=== PATIENT | male | born 1980 | race Hispanic/Latino ===

== ENCOUNTER 2017-10-25 06:30 | Emergency (ER) | payer OTHER ==
[2017-10-25 06:58] VITALS: BP 136/90; PULSE 71; RESP 16; TEMP 98; O2SAT 98
[2017-10-25] MEDS ORDERED: Albuterol-Ipratrop 3 mg / 0.5 (3 ml) UD IH STA (07:05)
--- NOTE | 2017-10-25 07:08 | ED PDOC ---
HPI: CCC, URI, Sore Throat Time Seen by Provider: 10/25/17 06:56 Chief Complaint (Nursing): Cough, Cold, Congestion History Per: Patient Onset/Duration Of Symptoms: Days (3) Current Symptoms Are (Timing): Still Present Associated Symptoms: Cough. denies: Fever Severity: Moderate Additional Complaint(s): Productive cough assoc with chest tightness x 3 days. Started on antibiotics 2 days ago after CXR showing bronchitis. No fever. Past Medical History Reviewed: Historical Data, Nursing Documentation, Vital Signs Vital Signs: Last Vital Signs Temp 98.0 F 10/25/17 06:54 Pulse 71 10/25/17 06:54 Resp 16 10/25/17 06:54 BP 136/90 10/25/17 06:54 Pulse Ox 98 10/25/17 07:40 - Medical History PMH: No Chronic Diseases - Family History Family History: States: Unknown Family Hx - Immunization History Hx Tetanus Toxoid Vaccination: No Hx Influenza Vaccination: No Hx Pneumococcal Vaccination: No - Home Medications Home Medications: Ambulatory Orders Medication Instructions Recorded Azithromycin 250 mg PO DAILY #6 tab 10/23/17 Benzonatate [Tessalon Perles] 200 mg PO TID PRN #15 sgl 10/23/17 Albuterol HFA [Ventolin HFA 90 2 puff IH Q4H #1 puff 10/25/17 mcg/actuation (8 g)] Prednisone 50 mg PO DAILY #5 tab 10/25/17 - Allergies Allergies/Adverse Reactions: Allergies Allergy/AdvReac Type Severity Reaction Status Date / Time Penicillins Allergy RASH Verified 05/24/17 08:07 Review of Systems Constitutional: Negative for: Fever ENT: Negative for: Throat Pain Respiratory: Positive for: Cough Gastrointestinal: Negative for: Nausea, Vomiting Physical Exam - Reviewed Nursing Documentation Reviewed: Yes Vital Signs Reviewed: Yes - Physical Exam Appears: Positive for: Non-toxic, No Acute Distress Skin: Positive for: Normal Color, Warm, DRY Cardiovascular/Chest: Positive for: Regular Rate, Rhythm Respiratory: Positive for: Rhonchi. Negative for: Wheezing, Respiratory Distress Extremity: Positive for: Normal ROM Neurologic/Psych: Positive for: Alert, Oriented - ECG O2 Sat by Pulse Oximetry: 98 Medical Decision Making Medical Decision Making: Time 07:05 Plan: - Duoneb 3 mg/0.5 mg 93 ml) UD - Tylenol 325mg tab - Peak flow/Pre/Post treatment - Influenza A B Stat Disposition - Clinical Impression Clinical Impression: Bronchitis - Patient ED Disposition Is Patient to be Admitted: No Counseled Patient/Family Regarding: Studies Performed, Diagnosis, Need For Followup, Rx Given - Disposition Referrals: [facility] [Outside] Disposition: Routine/Home Disposition Time: 09:05 Condition: FAIR Prescriptions: Albuterol HFA [Ventolin HFA 90 mcg/actuation (8 g)] 2 puff IH Q4H #1 puff Prednisone 50 mg PO DAILY #5 tab Instructions: Acute Bronchitis (ED) Forms: [employer] ([place]ovenian)
== END 2017-10-25 09:19 | disposition home or self-care (01) ==
LOC: H.ER 06:30
DX: J40 Bronchitis, not specified as acute or chronic (principal); Z88.0 Allergy status to penicillin

== ENCOUNTER 2019-01-26 23:31 | Emergency (ER) | payer BC, OTHER ==
[2019-01-26 23:48] VITALS: RESP 16
--- NOTE | 2019-01-27 00:36 | ED PDOC ---
HPI: Back Time Seen by Provider: 01/26/19 23:54 Chief Complaint (Nursing): Back Pain Chief Complaint (Provider): back pain History Per: Patient History/Exam Limitations: no limitations Onset/Duration Of Symptoms: Hrs (2) Current Symptoms Are (Timing): Still Present Exacerbating Factor(s): Turning, Movement, Sitting, Standing Additional Complaint(s): 38 y/o male presents for evaluation of low back pain and right shoulder pain x 2 hours. Patient states he was batting at softball when symptoms began. Denies numbness/weakness upper or lower extremities, bowel/bladder incontinence. No medications taken for relief thus far Past Medical History Reviewed: Historical Data, Nursing Documentation, Vital Signs Vital Signs: Last Vital Signs Temp 97.7 F 01/26/19 23:45 Pulse 97 H 01/26/19 23:45 Resp 16 01/26/19 23:45 BP 134/88 01/26/19 23:45 Pulse Ox 97 01/26/19 23:45 - Medical History PMH: No Chronic Diseases - Surgical History Other surgeries: lap band - Family History Family History: States: Unknown Family Hx - Living Arrangements Living Arrangements: With Family - Immunization History Hx Tetanus Toxoid Vaccination: No Hx Influenza Vaccination: No Hx Pneumococcal Vaccination: No - Home Medications Home Medications: Ambulatory Orders Medication Instructions Recorded Azithromycin 250 mg PO DAILY #6 tab 10/23/17 Benzonatate [Tessalon Perles] 200 mg PO TID PRN #15 sgl 10/23/17 Albuterol HFA [Ventolin HFA 90 2 puff IH Q4H #1 puff 10/25/17 mcg/actuation (8 g)] Prednisone 50 mg PO DAILY #5 tab 10/25/17 Cyclobenzaprine [Cyclobenzaprine 10 mg PO BID PRN #14 tab 01/27/19 HCl] Lidocaine 5% [Lidoderm] 1 patch TOP DAILY #7 patch 01/27/19 Naproxen [Naprosyn] 500 mg PO Q12 PRN #20 tablet 01/27/19 - Allergies Allergies/Adverse Reactions: Allergies Allergy/AdvReac Type Severity Reaction Status Date / Time Penicillins Allergy RASH Verified 01/26/19 23:45 Review of Systems ROS Statement: Except As Marked, All Systems Reviewed And Found Negative Musculoskeletal: Positive for: Shoulder Pain (right), Back Pain Physical Exam - Reviewed Nursing Documentation Reviewed: Yes Vital Signs Reviewed: Yes - Physical Exam Appears: Positive for: Well, Non-toxic, No Acute Distress Head Exam: Positive for: ATRAUMATIC, NORMAL INSPECTION, NORMOCEPHALIC Skin: Positive for: Normal Color Eye Exam: Positive for: Normal appearance ENT: Positive for: Normal ENT Inspection Cardiovascular/Chest: Positive for: Regular Rate, Rhythm Respiratory: Positive for: Normal Breath Sounds Gastrointestinal/Abdominal: Positive for: Normal Exam Back: Positive for: Muscle Spasm (bilateral lspine paraverterbral tenderness extending upward). Negative for: L CVA Tenderness, R CVA Tenderness, Vertebral Tenderness Extremity: Positive for: Normal ROM (pain anterior right shoulder with flexion, abduction) - ECG O2 Sat by Pulse Oximetry: 97 - Other Rad lspine xray X-Ray: Viewed By Me X-Ray Interpretation: no acute findings xray right shoulder X-Ray: Viewed By Me X-Ray Interpretation: no acute findings - Progress ED Course And Treament: -Toradol IM -flexeril PO -lspine xray -right shoulder xray On re-eval, patient states pain improved Patient educated on findings, discharged with rx Naproxen, Flexeril, Lidoderm Advised warm compresses Follow up PMD within 2-3 days Return precautions given Disposition - Clinical Impression Clinical Impression: Low back pain - Patient ED Disposition Is Patient to be Admitted: No Counseled Patient/Family Regarding: Studies Performed, Diagnosis, Need For Followup, Rx Given - Disposition Disposition: Routine/Home Disposition Time: 02:39 Condition: IMPROVED Prescriptions: Cyclobenzaprine [Cyclobenzaprine HCl] 10 mg PO BID PRN #14 tab PRN Reason: Muscle Spasm Lidocaine 5% [Lidoderm] 1 patch TOP DAILY #7 patch Naproxen [Naprosyn] 500 mg PO Q12 PRN #20 tablet PRN Reason: Pain, Moderate (4-7) Instructions: Low Back Pain in Adults Forms: [employer] ([place]), [facility] ED School/Work Excuse
[2019-01-27 04:59] VITALS: BP 129/74; PULSE 88; TEMP 98; O2SAT 99
--- NOTE | 2019-01-27 14:38 | RAD ---
Date of service: 01/27/2019 PROCEDURE: Radiographs of the Right Shoulder HISTORY: injury, pain COMPARISON: No prior. TECHNIQUE: 3 views obtained. FINDINGS: BONES: Normal. No fracture. JOINTS: Normal. Glenohumeral and acromioclavicular joints preserved. No osteoarthritis. SOFT TISSUES: Normal. OTHER FINDINGS: None. IMPRESSION: Normal radiographs of the right shoulder.
--- NOTE | 2019-01-27 14:38 | RAD ---
Date of service: 01/27/2019 PROCEDURE: Radiographs of the Lumbar Spine. HISTORY: injury, pain COMPARISON: No prior. TECHNIQUE: Four views obtained. FINDINGS: BONES: Normal alignment. No listhesis. No fracture. DISC SPACES: Unremarkable. OTHER FINDINGS: None. IMPRESSION: Unremarkable radiographs of the lumbar spine.
== END 2019-01-27 02:48 | disposition home or self-care (01) ==
LOC: H.ER 23:31
DX: M54.5 Low back pain (principal); Z88.0 Allergy status to penicillin
CPT/HCPCS: 72100; 73030; 96372; 99283; J1885